=== PATIENT | male | born 1975 | race Caucasian/White ===

== ENCOUNTER 2017-02-05 14:21 | Emergency (ER) | payer OTHER | END 2017-02-05 16:25 | disposition home or self-care (01) | LOC: ER1 14:21 | DX: S39.012A Strain of muscle, fascia and tendon of lower back, initial encounter (principal); W01.0XXA Fall on same level from slipping, tripping and stumbling without subsequent striking against object, initial encounter; Z90.49 Acquired absence of other specified parts of digestive tract; Z79.899 Other long term (current) drug therapy | CPT/HCPCS: 72070; 72100; 96372; 99283; J1885 ==